=== PATIENT | male | born 1940 | race Caucasian/White ===

== ENCOUNTER → 2018-03-30 05:53 | Outpatient (CLI) | payer OTHER, SELFPAY ==
--- NOTE | 2018-03-30 | DI.RAD.S_ITS ---
PROCEDURE: XR SHOULDER LT MIN 2V INDICATIONS: STATUS POST CERVICAL SPINAL ARTHRODESIS, SHOULDER PAIN TECHNIQUE: 3 views of the shoulder were acquired. COMPARISON: None. FINDINGS: Bones: No fractures or dislocations. No suspicious bony lesions. Visualized ribs appear intact. Moderate joint narrowing with periarticular osteophyte formation of the acromioclavicular and glenohumeral joint. Lower cervical spine fixation hardware incompletely visualized. Soft tissues: No suspicious soft tissue calcifications. Left cardiac pacer. 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 Dictated by: Marc Yañez [facility] Interpreted: Jacob Hough MD on 03/30/2018 at 9:13 Approved by: Jacob Hough M.D. on 03/30/2018 at 11:07
--- NOTE | 2018-03-30 | DI.CT.S_ITS ---
PROCEDURE: CT CERVICAL SPINE WO CON INDICATIONS: STATUS POST CERVICAL SPINAL ARTHRODESIS TECHNIQUE: Noncontrast 3 mm thick sections acquired from the skull base to the T4 level. Sagittal and coronal reformats were then constructed. For radiation dose reduction, the following was used: automated exposure control, adjustment of mA and/or kV according to patient size. COMPARISON: None. FINDINGS: Image quality: Excellent. Bones: Patient is status post anterior fusion at C4-C7 levels with intervertebral spacer placement at C4-5 through C6-7 levels. Minimal anterolisthesis of C3 on C4 and C7 on T1 is seen. Partial bony union at C4-C7 levels are seen. There is straightening of normal cervical lordosis. No acute compression fracture or traumatic spondylolisthesis. No gross hardware loosening or failure. Vertebral body heights are preserved. There are decreased intervertebral disc space and degenerative endplate changes at C3-4 and C7-T1 levels. Bilateral uncinate hypertrophic changes are noted throughout cervical spine. There is suggestion of bilateral neural foramina narrowing at C3-4, C4-5, C5-6 and C6-7 levels slightly worse on the right side. No significant central canal stenosis. Visualized superior ribs are intact. Soft tissues: Prevertebral soft tissues are normal in thickness. No paravertebral hematomas. No apical pneumothoraces. IMPRESSION: 1. Patient is status post anterior fusion from C4-C7 levels with straightening of normal cervical lordosis. No acute compression fracture. No gross hardware complication. 2. Degenerative endplate changes at C3-4 and C7-T1 levels. Bilateral uncinate hypertrophic changes throughout cervical spine with suggestion of mild bilateral neuroforaminal narrowing slightly worse on the right side. No significant central canal stenosis. Dictated by: Quincy Gold M.D. on 03/30/2018 at 9:07 Approved by: Quincy Gold M.D. on 03/30/2018 at 9:13
== END ==
PROVIDERS: PCP Nurse Practitioner; Visit Provider Physical Medicine & Rehabilitation
DX: M25.512 Pain in left shoulder (principal); M19.011 Primary osteoarthritis, right shoulder; M75.42 Impingement syndrome of left shoulder; M47.812 Spondylosis without myelopathy or radiculopathy, cervical region; Z98.1 Arthrodesis status
CPT/HCPCS: 72125; 73030

== ENCOUNTER 2018-06-07 07:35 | Outpatient (CLI) | payer OTHER, SELFPAY ==
[2018-06-07] VITALS (8 sets, daily range): BP systolic 102–137; BP diastolic 60–78; PULSE 48–72; RESP 16–18; TEMP 36.2; O2SAT 95–98
--- NOTE | 2018-06-07 07:36 | DI.RAD.S_ITS ---
PROCEDURE: PAIN C/T INTERLAMINAR INJECT INDICATIONS: cervicaL myelopathy FINDINGS: Fluoroscopic spot filming was performed to verify placement of spinal needles at the T1-T2 level(s), as labeled on the films. Appropriate location(s) of the needle tip(s) was confirmed by injection of iodinated contrast. Note is made of surgical fusion in the lower cervical spine. IMPRESSION: Fluoroscopy for pain management. Dictated by: Martha Baxter M.D. on 06/07/2018 at 13:06 Approved by: Martha Baxter M.D. on 06/07/2018 at 13:06
[2018-06-07 08:59] LABS: Prothrombin Time 11.8 SECONDS (10.1-12.7)
[2018-06-07] MEDS: MIDAZOLAM 5 MG/5 ML VIAL IV (09:14)
[2018-06-07] MEDS: IOPAMIDOL 15 ML VIAL 3 ML INJ (09:24)
[2018-06-07] MEDS: DEXAMETHASONE 10 MG/ML VIAL 20 MG INJ (09:25)
[2018-06-07] MEDS: LIDOCAINE 1% 20 ML INJ 5 ML INJ (09:25)
--- NOTE | 2018-06-07 09:27 | PC.NURSE ---
ASSISTING PT OFF TABLE AND TRANSPORTING TO POST PROC ROOM IN STABLE CONDITION
--- NOTE | 2018-06-07 09:34 | P.PCN_ITS ---
Procedures Date/Time Date of procedure: 06/07/18 Time of procedure: 09:32 General Procedure description: PREOP DIAGNOSIS 1. CERVICAL STENOSIS, 2. CERVICAL HNP WITH UPPER EXTREMITY RADICULAR FEATURES, POST OP DIAGNOSIS 1. CERVICAL STENOSIS, 2. CERVICAL HNP WITH UPPER EXTREMITY RADICULAR FEATURES, PROCEDURES 1. FLUORSCOPICALLY GUIDED CONTRAST CONTROLLED INTERLAMINAR EPIDURAL STEROID INJECTION - T1/T2 TL RELL, PHYSICIAN: Suresh Guzman DO INDICATIONS: Slava is referred by LOIS Galeas for treatment of Cervical Stenosis. FINDINGS Cervical Stenosis due to disc deterioration and nerve root irritation and nerve root irritation DESCRIPTION OF PROCEDURE Fluoroscopically guided, contrast-controlled T1/T2 translaminar epidural steroid injection with conscious sedation. Following denial of allergy and review of potential side effects and complications, including, but not necessarily limited to, infection, allergic reaction, local tissue breakdown, temporary as well as permanent nerve injury, stroke, paralysis, and possible , the patient indicated that patient understood and agreed to proceed. An informed consent document was signed by the patient, witnessed by a nurse, and placed in the patient's chart. Additionally, other treatment options including modalities, medications, and physical therapy were reviewed with the patient. After review of previous anaesthesic history and IV conscious sedation the patie nt was deemed safe to proceed with todays procedure with IV conscious sedation as ASA class II designation. Safety time-out was performed to confirm patient ID, procedure to be performed and site of procedure. IV sedation was accomplished with a combination of 3mg of Versed administered by the RN after DO order, titrated to patient comfort during the course of the procedure while the patient remained responsive to all verbal commands. In the prone position, following sterile prep and drape of the cervical region, the T1/T2 translaminar space was identified fluoroscopically. The skin was anest hetized via a 25-gauge 1.5-inch needle with 1% lidocaine solution. At this point, a 25-gauge, 2.5-inch short bevel spinal needle was atraumatically introduced and advanced under fluoroscopic guidance into epidural space at the T1/T2 translaminar space. Depth was confirmed on lateral view. Radiological data, including multiple fluoroscopic views of the cervical spine, reveal a spinal needle at the T1/T2 translaminar space. Lateral views then show placement of the needle in the epidural space. Subsequent views show contrast material flowing superiorly and inferiorly in the epidural space. DSA fluoroscopy with live contrast injection, once again, confirmed no vascular or intrathecal uptake. At this point, using loss of resistance technique with saline and air, the epidural space was entered. Following negative aspiration, injection of approximately 1.5 cc of Isovue-200 with live fluoroscopy in the AP view confirmed epidural flow in the epidural space without vascular or intrathecal uptake observed. Subsequently, a test dose of 1 cc of 1% lidocaine solution was injected and patient was observed for two minutes without signs or symptoms of complications, including abdominal pain, shortness of breath, bilateral upper or lower extremity weakness, nausea and vomiting, prior to steroid injection. At this point, 2cc or 20 mg of dexamethasone was then injected without incident. The patient tolerated the procedure well without signs or symptoms of complications prior to transfer to the recovery area for further monitoring The patient was then transferred to the recovery area where they were observed for an appropriate period of time after the injection. The patient reported a VAS score of 6 prior to the procedure and a post-procedure VAS of 0. Total Fluoroscopy Time: 23.2 seconds Total Conscious Sedation Time: 24min POST OP INSTRUCTIONS The patient was provided a Pain Log to continue to record their response to the target-specific procedure prior to follow-up visit with the referring provider. Additionally, specific post-injection care instructions and a contact number to our office were provided if concerns arise regarding possible complications asso ciated with the procedure are suspected. Suresh Guzman DO Complications: none
--- NOTE | 2018-06-07 09:48 | PC.NURSE ---
Pt returned from procedure via wheelchair alert and awake, able to move from w/c to chair with minimal assist. Resumed monitoring from Cris NUNEZ.
--- NOTE | 2018-06-08 11:41 | PC.NURSE ---
FOLLOW UP CALL MADE, PT DENIES QUESTIONS/CONCERNS AND STATES HE FEELS GREAT. REMINDED PT TO CONTINUE WITH HIS PAIN LOG.
== END 2018-06-07 10:10 ==
PROVIDERS: PCP Nurse Practitioner; Visit Provider Physical Medicine & Rehabilitation
DX: M48.02 Spinal stenosis, cervical region (principal); M50.10 Cervical disc disorder with radiculopathy, unspecified cervical region; M47.12 Other spondylosis with myelopathy, cervical region; Z98.1 Arthrodesis status
CPT/HCPCS: 62321; 85610; 99152; J1100; J2250

== ENCOUNTER 2018-08-03 07:16 | Outpatient (CLI) | payer OTHER, SELFPAY ==
[2018-08-03] VITALS (8 sets, daily range): BP systolic 113–137; BP diastolic 62–95; PULSE 47–57; RESP 14–16; O2SAT 93–99
--- NOTE | 2018-08-03 07:20 | DI.RAD.S_ITS ---
PROCEDURE: PAIN C/T FACET INJ/BLK 1ST LESLI COMPARISON: None. INDICATIONS: SPONDYLOSIS FINDINGS: Localization images document C3-C4 needle tip positioning bilaterally for bilateral facet joint localization and steroid injection. IMPRESSION: Successful bilateral facet joint injections at the C3-4 level from posterior approach. Dictated by: Ray Lewis M.D. on 08/03/2018 at 9:58 Approved by: Ray Lewis M.D. on 08/03/2018 at 9:59
[2018-08-03 07:47] LABS: Prothrombin Time 11.8 SECONDS (10.1-12.7)
[2018-08-03] MEDS: MIDAZOLAM 5 MG/5 ML VIAL IV (09:00)
[2018-08-03] MEDS: DEXAMETHASONE 10 MG/ML VIAL 20 MG INJ (09:05)
[2018-08-03] MEDS: IOPAMIDOL 15 ML VIAL 3 ML INJ (09:05)
[2018-08-03] MEDS: BUPIVACAINE 0.25% (PF) VIAL 2 ML INJ (09:05)
--- NOTE | 2018-08-03 09:23 | PC.NURSE ---
Pt tolerated procedure well. Transferred pt via wheelchair to pre procedure room after we got him off the table with minimal 2 person assist. Resumed monitoring with Cris NUNEZ.
--- NOTE | 2018-08-03 09:32 | P.PCN_ITS ---
Procedures Date/Time Date of procedure: 08/03/18 Time of procedure: 09:27 General Procedure description: PREOP DIAGNOSIS 1. FACET ARTHROPATHY 2. AXIAL NECK PAIN POST OP DIAGNOSIS 1. FACET ARTHROPATHY 2. AXIAL NECK PAIN PROCEDURES 1. FLUOROSCOPICALLY GUIDED, CONTRAST-CONTROLLED BILATERAL C3/4 FACET JOINT INJECTIONS WITH CONSCIOUS SEDATION. PHYSICIAN: Suresh Guzman, DO INDICATIONS Slava is referred by Adal ABREU for treatment of Axial Neck Pain DESCRIPTION OF PROCEDURE Fluoroscopically guided, contrast-controlled bilateral C3/4 facet joint injections with conscious sedation. Following denial of allergy and review of potential side effects and complications, including, but not necessarily limited to, infection, allergic reaction, local tissue breakdown, stroke, temporary or permanent nerve injury and paralysis, the patient indicated that the patient understood and agreed to proceed. An informed consent document was signed by the patient, witnessed by a nurse, and placed in the patient's chart. Additionally, other treatment options including medications, modalities, and physical therapy were reviewed with the patient. After review of previous anaesthesic history and IV conscious sedation the patient was deemed safe to proceed with todays procedure with IV conscious sedation as ASA class II designation. Safety time-out was performed to confirm patient ID, procedure to be performed and site of procedure. IV sedation was accomplished with a combination of 3mg of Versed was administered by the RN after DO order, titrated to patient comfort during the course of the procedure while the patient remained responsive to all verbal commands In the prone position, following sterile prep and drape of the cervical spine region, the posterior aspect of the right C3/4 facet joints were identified fluoroscopically. The skin was anesthetized via a 25-gauge 1.5-inch needle with 1% lidocaine solution into the corresponding facet joints. At this point, a 25- gauge 2.5-inch spinal needle was atraumatically introduced and advanced under fluoroscopic guidance into the corresponding facet joints. Following negative aspiration, injections of approximately 0.2-cc of Isovue 200 confirmed interarticular placement without vascular uptake. The identical procedure was completed on the left. At this point, a total of 1 cc including 0.5 cc or 5mg of dexamethasone combined with 0.5 cc of 1% lidocaine solution was injected without complication into each of the corresponding facet joints. The patient tolerated the procedure well without signs or symptoms of complications prior to transfer to the recovery area continued monitoring without incident. The patient was then transferred to the recovery area where they were observed for an appropriate period of time after the injection. The patient reported a VAS score of 7 prior to the procedure and a post- procedure VAS of 0. Total Fluoroscopy Time: 20.5 seconds Total Conscious Sedation Time: 24 min POST OP INSTRUCTIONS They were provided a Pain Log to continue to record their response to the target-specific procedure prior to their follow-up visit with their referring physician. Additionally, specific post-injection care instructions and a contact number to our office were provided if concerns arise regarding possible complications associated with the procedure are suspected. Suresh Guzman, Complications: none
--- NOTE | 2018-08-03 09:32 | PC.NURSE ---
ACCEPTED CARE OF PT IN POST PROC AREA IN STABLE CONDITION
== END 2018-08-03 10:09 | disposition home or self-care (01) ==
LOC: LAB 07:19 → DI 09:30
PROVIDERS: PCP Nurse Practitioner; Visit Provider Physical Medicine & Rehabilitation
DX: M47.812 Spondylosis without myelopathy or radiculopathy, cervical region (principal); M54.2 Cervicalgia; Z98.1 Arthrodesis status
CPT/HCPCS: 36415; 64490; 85610; 99152; J1100; J2250

== ENCOUNTER → 2020-05-27 13:22 | Outpatient (CLI) | payer OTHER, SELFPAY ==
--- NOTE | 2020-05-27 13:23 | DI.RAD.S_ITS ---
PROCEDURE: XR CERVICAL SPINE 4V OR 5V INDICATIONS: CERVICAL PAIN TECHNIQUE: 5 views of the cervical spine acquired. COMPARISON: [facility], CT, CT CERVICAL SPINE WO CON, 03/30/2018, 6:35. FINDINGS: Bones: No fractures or dislocations to the T1 level. Oblique images demonstrate no bony foraminal stenoses. Anterior cervical fusion plate is stable over time with reference to prior CT scanning from 2018, showing no sign of disruption or loosening. This crosses anterior to C4 through C7. [id number] foraminal stenosis appears present at C4-5, C5-6 and C6-7 associated with symmetric facet and uncovertebral osteoarthritis. Soft tissues: No prevertebral soft tissue swelling. IMPRESSION: Prior cervical fusion as discussed with foraminal stenosis that is [id number] by osteophytic spurring as noted, symmetric bilaterally. No subluxation is present nor is there evidence of device loosening or disruption. Dictated by: Ray Lewis M.D. on 05/27/2020 at 16:08 Approved by: Ray Lewis M.D. on 05/27/2020 at 16:10
== END ==
PROVIDERS: PCP Nurse Practitioner; Referring Provider Physical Medicine & Rehabilitation; Visit Provider Physical Medicine & Rehabilitation
DX: M54.2 Cervicalgia (principal); G95.9 Disease of spinal cord, unspecified; M47.812 Spondylosis without myelopathy or radiculopathy, cervical region; M48.02 Spinal stenosis, cervical region; Z98.1 Arthrodesis status
CPT/HCPCS: 72050

== ENCOUNTER → 2020-07-22 13:16 | Outpatient (CLI) | payer OTHER, SELFPAY ==
[2020-07-22 17:56] LABS: COVID19 -Nasal RAPID Negative (Negative)
== END ==
PROVIDERS: PCP Nurse Practitioner; Visit Provider Physical Medicine & Rehabilitation
DX: Z01.812 Encounter for preprocedural laboratory examination (principal); Z20.822 Contact with and (suspected) exposure to COVID-19
CPT/HCPCS: 87635; C9803

== ENCOUNTER 2020-07-23 08:10 | Outpatient (CLI) | payer OTHER, SELFPAY ==
[2020-07-23] VITALS (11 sets, daily range): BP systolic 82–133; BP diastolic 49–71; PULSE 48–75; RESP 12–19; TEMP 36.1; O2SAT 96–100
--- NOTE | 2020-07-23 08:11 | DI.RAD.S_ITS ---
PROCEDURE: PAIN C/T FACET INJ/BLK 1ST L INDICATIONS: RIGHT C2/3, C3/4 FACET JOINT INJECTION COMPARISON: [facility], XA, PAIN C/T FACET INJ/BLK 1ST LESLI, 08/03/2018, 9:12. FINDINGS: Fluoroscopic spot filming was performed to verify placement of spinal needles at the C2-C3 and C3-C4 levels on the right, as labeled on the films. Appropriate location(s) of the needle tip(s) was confirmed by injection of iodinated contrast. IMPRESSION: Intraprocedural examination within normal limits. Dictated by: Jaswant Ponce M.D. on 07/23/2020 at 9:17 Approved by: Jaswant Ponce M.D. on 07/23/2020 at 9:18
[2020-07-23] MEDS: fentaNYL 100 MCG/2 ML INJ 50 MCG IV (09:35)
[2020-07-23] MEDS: MIDAZOLAM 5 MG/5 ML VIAL IV (09:35)
--- NOTE | 2020-07-23 09:49 | P.PCN_ITS ---
Date/Time/Diagnoses Date of procedure: 07/23/20 Time of procedure: 09:49 Pre-procedure diagnosis: 1. FACET ARTHROPATHY 2. AXIAL NECK PAIN Post-procedure diagnosis: same Procedure Notes Procedure: 1. FLUOROSCOPICALLY GUIDED, CONTRAST-CONTROLLED RIGHT C2/3, C3/4 FACET JOINT INJECTIONS WITH CONSCIOUS SEDATION. Indications: Slava is referred by LOIS Galeas for treatment of Axial Neck Pain Physician: Suresh Guzman Total Fluoroscopy time (seconds): 9 Total sedation minutes: 12 Complications: none Procedure in detail & Post-procedure care: DESCRIPTION OF PROCEDURE Fluoroscopically guided, contrast-controlled right C2/3, C3/4 facet joint injections with conscious sedation. Following review of allergy and review of potential side effects and complications, including, but not necessarily limited to, infection, allergic reaction, local tissue breakdown, stroke, temporary or permanent nerve injury and paralysis, the patient indicated that the patient understood and agreed to proceed. An informed consent document was signed by the patient, witnessed by a nurse, and placed in the patient's chart. Additionally, other treatment options including medications, modalities, and physical therapy were reviewed with the patient. After review of previous anaesthesic history and IV conscious sedation the patient was deemed safe to proceed with today?s procedure with IV conscious sedation as ASA class II designation. Safety time-out was performed to confirm patient ID, procedure to be performed and site of procedure. IV sedation was accomplished with a combination of 2mg of Versed and 50mcg of Fentanyl was administered by the RN after DO order, titrated to patient comfort during the course of the procedure while the patient remained responsive to all verbal commands In the prone position, following sterile prep and drape of the cervical spine region, the posterior aspect of the right C2/3, C3/4 facet joints were identified fluoroscopically. The skin was anesthetized via a 25-gauge 1.5-inch needle with 1% lidocaine solution into the corresponding facet joints. At this point, a 25-gauge 2.5-inch spinal needle was atraumatically introduced and advanced under fluoroscopic guidance into the corresponding facet joints. Following negative aspiration, injections of approximately 0.2-cc of Isovue 200 confirmed interarticular placement without vascular uptake. At this point, a total of 1cc including 0.5cc or 5 mg of dexamethasone combined with 0.5cc of 1% lidocaine solution was injected without complication into each of the corresponding facet joints. The procedure tolerated the procedure well without signs or symptoms of complications prior to transfer to the recovery area continued monitoring without incident. The patient was then transferred to the recovery area where they were observed for an appropriate period of time after the injection. The patient reported a VAS score of 7 prior to the procedure and a post- procedure VAS of 0. POST OP INSTRUCTIONS They were provided a Pain Log to continue to record their response to the target-specific procedure prior to their follow-up visit with their referring physician. Additionally, specific post-injection care instructions and a contact number to our office were provided if concerns arise regarding possible complications associated with the procedure are suspected.
[2020-07-23] MEDS: IOPAMIDOL 15 ML VIAL 3 ML INJ (09:50)
[2020-07-23] MEDS: BUPIVACAINE 0.5% (PF) VIAL 2 ML INJ (09:50)
[2020-07-23] MEDS: DEXAMETHASONE 10 MG/ML VIAL 20 MG INJ (09:51)
--- NOTE | 2020-07-23 11:11 | PC.NURSE ---
Pt arrived from procedure with Hr 40-60s, bigeminy, trigeminy and paced. Asymptomatic. No change in LOC, No dizziness. BP 79-93/51-84. Dr Guzman at bedside at 1030. Notified of low BP and fluctuating heart rate. Pt ok'd to discharge.
--- NOTE | 2020-07-23 11:18 | PC.NURSE ---
pt had nose bleed immediately upon positioning for procedure. returned pt to upright position and stopped immediately. dr no in room and aware. pt was paced but in bigeminy , trigemeny and lowest rate noted in procedure room was 48 BPM
== END 2020-07-23 10:40 | disposition home or self-care (01) ==
LOC: RAD 08:11
PROVIDERS: PCP Nurse Practitioner; Referring Provider Nurse Practitioner; Visit Provider Physical Medicine & Rehabilitation
DX: M47.812 Spondylosis without myelopathy or radiculopathy, cervical region (principal); M54.2 Cervicalgia
CPT/HCPCS: 64490; 64491; 99152; J1100; J2250; J3010

== ENCOUNTER → 2020-08-21 08:40 | Outpatient (CLI) | payer OTHER, SELFPAY ==
--- NOTE | 2020-08-21 08:41 | DI.RAD.S_ITS ---
PROCEDURE: XR LUMBAR SPINE MIN 4V INDICATIONS: Acute axial low back pain TECHNIQUE: 5 views of the lumbar spine were acquired, including bilateral oblique views. COMPARISON: None. FINDINGS: Bones: 5 nonrib-bearing vertebrae are present. Rightward curvature of the lumbar spine with the apex at L3. Multilevel degenerative endplate spurring and osteophytosis of the thoracolumbar spine. Trace anterolisthesis L4 on five. No vertebral body compression fractures. No suspicious bony lesions. Soft tissues: Loss of disc space L4-5 and L5-S1. Overlying bowel gas pattern is normal. No suspicious soft tissue calcifications. Heavy abdominal aortic and bi-iliac atherosclerotic calcification. Multiple surgical clips in the left upper quadrant. Splenic artery calcification. Oblique images: No pars defects. L5-S1 facets are not well seen, however there appears to be degenerative joint space loss, mild hypertrophy and sclerosis at this level. IMPRESSION: 1. Multilevel degenerative changes to mild degree. 2. Degenerative facet arthropathy L4 through S1 allowing for trace L4 on five anterolisthesis. 3. Heavy atherosclerotic calcification. Dictated by: Luba Lennon M.D. on 08/21/2020 at 9:33 Approved by: Luba Lennon M.D. on 08/21/2020 at 9:37
== END ==
PROVIDERS: PCP Nurse Practitioner; Referring Provider Physical Medicine & Rehabilitation; Visit Provider Physical Medicine & Rehabilitation
DX: M47.816 Spondylosis without myelopathy or radiculopathy, lumbar region (principal); M47.817 Spondylosis without myelopathy or radiculopathy, lumbosacral region; I70.0 Atherosclerosis of aorta; M47.812 Spondylosis without myelopathy or radiculopathy, cervical region; G95.9 Disease of spinal cord, unspecified; M54.81 Occipital neuralgia; Z96.653 Presence of artificial knee joint, bilateral; Z98.1 Arthrodesis status
CPT/HCPCS: 72110; 99214

== ENCOUNTER → 2020-09-17 07:33 | Outpatient (CLI) | payer OTHER, SELFPAY ==
[2020-09-17 13:12] LABS: COVID19 -Nasal RAPID Negative (Negative)
== END ==
PROVIDERS: PCP Nurse Practitioner; Visit Provider Physical Medicine & Rehabilitation
DX: Z20.822 Contact with and (suspected) exposure to COVID-19 (principal)
CPT/HCPCS: 87635; C9803

== ENCOUNTER 2020-09-19 08:00 | Outpatient (CLI) | payer OTHER, SELFPAY ==
[2020-09-19] VITALS (8 sets, daily range): BP systolic 122–144; BP diastolic 59–69; PULSE 40–62; RESP 14–20; TEMP 36.4; O2SAT 93–99
--- NOTE | 2020-09-19 08:01 | DI.RAD.S_ITS ---
PROCEDURE: PAIN L/SI FACET INJ/BLK 1STL INDICATIONS: SPONDYLOSIS COMPARISON: [facility], CR, XR LUMBAR SPINE MIN 4V, 08/21/2020, 8:49. FINDINGS: Fluoroscopic spot filming was performed to verify placement of spinal needles on the right at the T12-L1, L1-L2, and L2-L3 levels, as labeled on the films. Appropriate location(s) of the needle tip(s) was confirmed by injection of iodinated contrast. IMPRESSION: Intraprocedural examination within normal limits. Dictated by: Jaswant Ponce M.D. on 09/19/2020 at 9:57 Approved by: Jaswant Ponce M.D. on 09/19/2020 at 9:57
[2020-09-19] MEDS: fentaNYL 100 MCG/2 ML INJ 50 MCG IV (09:01)
[2020-09-19] MEDS: MIDAZOLAM 5 MG/5 ML VIAL IV (09:01)
[2020-09-19] MEDS: IOPAMIDOL 15 ML VIAL 3 ML INJ (09:07)
[2020-09-19] MEDS: BUPIVACAINE 0.5% (PF) VIAL 2 ML INJ (09:07)
[2020-09-19] MEDS: BETAMETHASONE 30 MG/5 ML MDV 12 MG INJ (09:08)
--- NOTE | 2020-09-19 09:16 | P.PCN_ITS ---
Date/Time/Diagnoses Date of procedure: 09/19/20 Time of procedure: 09:16 Pre-procedure diagnosis: 1. FACET ARTHROPATHY, 2. AXIAL LBP, 3. MULTILEVEL DDD Post-procedure diagnosis: same Procedure Notes Procedure: 1. FLUOROSCOPICALLY GUIDED CONTRAST CONTROLLED FACET JOINT INJECTIONS RIGHT T12/L1, L1/2, L2/3 Indications: Slava is referred by LOIS Galeas for treatment of Axial LBP Physician: Suresh Guzman Total Fluoroscopy time (seconds): 6 Total sedation minutes: 13 Complications: none Procedure in detail & Post-procedure care: FINDINGS Multilevel Facet Arthropathy with Clinically significant axial LBP DESCRIPTION OF PROCEDURE Fluoroscopically guided, contrast-controlled right T12/L1, L1/2, L2/3 facet joint injections. Following review of allergy and review of potential side effects and complications, including, but not necessarily limited to, infection, allergic reaction, local tissue breakdown, stroke, temporary or permanent nerve injury, paralysis, and possible , the patient indicated that the patient understood and agreed to proceed. An informed consent document was signed by the patient, witnessed by a nurse, and placed in the patient's chart. Additionally, other treatment options including medications, modalities, and physical therapy were reviewed with the patient. After review of previous anaesthesic history and IV conscious sedation the pa stephennt was deemed safe to proceed with today?s procedure with IV conscious sedation as ASA class II designation. Safety time-out was performed to confirm patient ID, procedure to be performed and site of procedure. IV sedation was accomplished with a combination of 2mg of Versed and 50mcg of Fentanyl administered by the RN after DO order, titrated to patient comfort during the course of the procedure while the patient remained responsive to all verbal commands. In the prone position, following sterile prep and drape of the lumbar region, the posterior aspect of the right T12/L1, L1/2, L2/3 facet joints were identified fluoroscopically. The skin was anesthetized via a 25-gauge 1.5-inch needle with 1% lidocaine solution into the corresponding facet joints. At this point, a 22-gauge 3.5-inch spinal needle was atraumatically introduced and advanced under fluoroscopic guidance into the corresponding facet joints. Following negative aspiration, injections of approximately 0.2-cc of Isovue 200 confirmed interarticular placement without vascular uptake. Radiological data, including multiple fluoroscopic views of the lumbosacral spine, reveal a spinal needle at the right T12/L1, L1/2, L2/3 facet joints. Subsequent views show flow of contrast material both superiorly and inferiorly within the joint space without vascular or intrathecal uptake. At this point, a total of 0.5cc including a mixture of 0.25 cc Marcaine and 0.25cc betamethasone was injected without complication into each of the corresponding facet joints. The patient tolerated the procedure well without signs or symptoms of complications prior to transfer to the recovery area for further monitoring. The patient was then transferred to the recovery area where they were observed for an appropriate period of time after the injection. The patient reported a VAS score of 7 prior to the procedure and a post-procedure VAS of 0. POST OP INSTRUCTIONS The patient was provided a Pain Log to continue to record their response to the target-specific procedure prior to follow-up visit with their referring physician. Additionally, specific post-injection care instructions and a contact number to our office were provided if concerns arise regarding possible complications associated with the procedure are suspected.
== END 2020-09-19 09:38 | disposition home or self-care (01) ==
PROVIDERS: PCP Nurse Practitioner; Referring Provider Physical Medicine & Rehabilitation; Visit Provider Physical Medicine & Rehabilitation
DX: M47.815 Spondylosis without myelopathy or radiculopathy, thoracolumbar region (principal); M47.816 Spondylosis without myelopathy or radiculopathy, lumbar region; M51.35 Other intervertebral disc degeneration, thoracolumbar region; M51.36 Other intervertebral disc degeneration, lumbar region; M54.5 Low back pain
CPT/HCPCS: 62321; 64490; 64491; 64492; 64493; 64494; 64495; 99152; J0702; J2250; J3010